=== PATIENT | female | born 1980 | race Caucasian/White ===

== ENCOUNTER → 2020-12-06 | Outpatient (CLI) | payer BC, OTHER | LOC: HEART 5 08:30 | DX: R07.9 Chest pain, unspecified (principal); R94.31 Abnormal electrocardiogram [ECG] [EKG]; I10 Essential (primary) hypertension; I08.1 Rheumatic disorders of both mitral and tricuspid valves; R93.1 Abnormal findings on diagnostic imaging of heart and coronary circulation | CPT/HCPCS: 93306 ==

== ENCOUNTER → 2020-12-11 | Outpatient (CLI) | payer BC, OTHER ==
[2020-12-11 13:08] LABS: HEMOGLOBIN 16.5 gm/dl (12.3-15.3); RED BLOOD COUNT 4.44 M/UL (4.00-5.10); WHITE BLOOD COUNT 6.8 K/UL (4.5-11.0)
[2020-12-11 13:59] LABS: BUN/CREATININE RATIO 20 (0-10)
[2020-12-12 09:15] LABS: VITAMIN D, 25-HYDROXY 20.1 ng/mL (30.0-100.0)
[2020-12-12 12:15] LABS: RHEUMATOID ARTHRITIS FACTOR <10.0 IU/mL (0.0-13.9)
[2020-12-12 23:07] LABS: CCP ANTIBODIES IGG/IGA 6 units (0-19)
== END ==
LOC: LAB 12:23
PROVIDERS: Nurse Practitioner Family
DX: D89.9 Disorder involving the immune mechanism, unspecified (principal); M25.50 Pain in unspecified joint; R76.8 Other specified abnormal immunological findings in serum; Z79.1 Long term (current) use of non-steroidal anti-inflammatories (NSAID)
CPT/HCPCS: 36415; 80053; 82550; 83520; 84439; 84443; 85025; 85652; 86140; 86200; 86431

== ENCOUNTER → 2021-02-05 | Outpatient (CLI) | payer BC, OTHER | LOC: HEART 5 01-21 08:15 | DX: R93.1 Abnormal findings on diagnostic imaging of heart and coronary circulation (principal); R94.31 Abnormal electrocardiogram [ECG] [EKG]; I50.1 Left ventricular failure, unspecified | CPT/HCPCS: 78452; A9502 ==